=== PATIENT | male | born 1955 ===

== ENCOUNTER 2021-01-23 10:00 | Outpatient (CLI) | payer SELFPAY ==
[2021-01-23] MEDS ORDERED: COVID-19 VACC, MRNA(PFIZER)/PF 30 MCG/0.3 ML IM ONE (12:15)
== END 2021-01-23 10:01 | disposition home or self-care (01) ==
LOC: COVVAC 10:00
PROVIDERS: ATTEND Internal Medicine
DX: Z23 Encounter for immunization (principal)
CPT/HCPCS: 0001A